=== PATIENT | female | born 2000 | race African-American/Black ===

== ENCOUNTER 2020-06-19 04:57 | Day surgery (SDC) | payer OTHER ==
[2020-06-16 12:31] VITALS: BMI 27.1
[2020-06-19] MEDS ORDERED: ACETAMINOPHEN 325 MG TABLET (FP) PO PRN (11:43)
[2020-06-19] MEDS ORDERED: oxyCODONE HCL 5 MG TABLET PO PRN ×3 (11:43→13:56)
[2020-06-19] MEDS ORDERED: IBUPROFEN 400 MG TABLET (FP) PO PRN (11:43)
--- NOTE | 2020-06-19 11:49 | HP ---
Admitting History and Physical - Admission History of Present Illness: 20 yo with persistent L bartholin gland cyst, desiring surgical intervention History Source: Patient Limitations to Obtaining History: No Limitations - Past Medical History LOCATION MAN: Yes: Migraine (without aura) Cardiovascular: No: HTN Pulmonary: No: Asthma Gastrointestinal: No: GERD ...LMP: 06/07/20 ...: No - Past Surgical History Past Surgical History: Yes: None - Smoking History Smoking history: Never smoked Have you smoked in the past 12 months: No - Alcohol/Substance Use Hx Alcohol Use: No Home Medications - Allergies Allergies/Adverse Reactions: Allergies Allergy/AdvReac Type Severity Reaction Status Date / Time No Known Allergies Allergy Verified 06/19/20 08:37 - Home Medications Home Medications: Ambulatory Orders Ibuprofen 400 mg PO PRN 06/16/20 Metronidazole 500 mg PO BID 06/16/20 Family Medical History Family History: Denies Review of Systems - Review of Systems Constitutional: reports: No Symptoms Cardiovascular: reports: No Symptoms Respiratory: reports: No Symptoms Gastrointestinal: reports: No Symptoms Neurological: reports: No Symptoms Endocrine: reports: No Symptoms Physical Examination Vital Signs: Vital Signs Temperature 97.5 F L 06/19/20 08:34 Pulse Rate 91 H 06/19/20 08:34 Respiratory Rate 20 06/19/20 08:34 Blood Pressure 128/74 06/19/20 08:34 O2 Sat by Pulse Oximetry (%) 100 06/19/20 08:34 Constitutional: Yes: Well Nourished, No Distress, Calm Cardiovascular: Yes: Regular Rate and Rhythm Respiratory: Yes: Regular Gastrointestinal: Yes: Normal Bowel Sounds, Soft Extremities: Yes: Deformity Edema: No Neurological: Yes: WNL Psychiatric: Yes: Alert, Oriented Assessment/Plan 20 yo with L bartholin gland cyst, desiring surgical intervneiton 1. Risks, benefits, alternatives and complications including infection, bleeding discussed discussed postop antibiotic use, strict pelvic rest 2. SCDs for DVT prophylaxis 3. Preop labs reviewed 4. Will proceed to OR
[2020-06-19] MEDS ORDERED: MIDAZOLAM HCL 2 MG/2 ML SINGLE DOSE VIAL ONE (12:36)
[2020-06-19] MEDS ORDERED: PROPOFOL 20 ML ONE ×2 (12:36)
[2020-06-19] MEDS ORDERED: LIDOCAINE 1%/EPI 1:100000 (20 ML MULTI DOSE VIAL) ONE (12:37)
[2020-06-19] MEDS ORDERED: LIDOCAINE 1%/EPI 1:100000 (50 ML MULTI DOSE VIAL) INF ONE ×3 (12:45→13:01)
--- NOTE | 2020-06-19 13:33 | OP ---
Operative Note - Note: Operative Date: 06/19/20 Pre-Operative Diagnosis: L bartholin gland cyst Operation: Marsupialization of Left Bartholin Gland Cyst Findings: 4 cm L bartholin gland cyst Post-Operative Diagnosis: Same as Pre-op Surgeon: Odilia Abarca Anesthesiologist/JUNIOR ARCHITECT: Daryn Sebastian Anesthesia: General Specimens Removed: Portion of Bartholin Gland cyst wall Estimated Blood Loss (mls): 10 Fluid Volume Replaced (mls): 900 Operative Report Dictated: Yes
[2020-06-19] MEDS ORDERED: ONDANSETRON 4 MG/2 ML VIAL IVPUSH PRN (13:49)
[2020-06-19] MEDS ORDERED: PROMETHAZINE HCL 25 MG/1 ML VIAL IVPUSH PRN (13:49)
[2020-06-19 16:58] VITALS: BP 136/82; PULSE 72; TEMP 97.7
--- NOTE | 2020-06-19 21:32 | OP ---
DATE OF OPERATION: 06/19/2020 ATTENDING PHYSICIAN: Gabbi Abarca MD PREOPERATIVE DIAGNOSIS: Persistent left Bartholin gland cyst. POSTOPERATIVE DIAGNOSIS: Persistent left Bartholin gland cyst. SURGERY: Marsupialization of left Bartholin gland cyst. SURGEON: Gabbi Abarca MD ANESTHESIOLOGIST: Daryn Sebastian MD ANESTHESIA: General anesthesia. FLUIDS GIVEN: 900 ESTIMATED BLOOD LOSS: 10 mL. INDICATIONS: Patient is a 20-year-old with a history of persistent left Bartholin gland cyst. She was counseled regarding observation, I&D, and surgical management with marsupialization. She opted for marsupialization. Risks, benefits, alternatives, and complications of the procedure were discussed, including infection, bleeding, scarring. She expressed understanding, was brought to the operating room. DESCRIPTION OF PROCEDURE: When anesthesia was found to be adequate, patient was prepped and draped in normal sterile fashion, placed in dorsal lithotomy position using Madan stirrups. The left Bartholin gland cyst was identified and noted to be approximately 4 cm. Lidocaine with epinephrine was injected superficially adjacent to the hymenal ring on the left side. An approximately 1-cm skin incision was made and carried down to the level of the cyst wall using Metzenbaum scissors. The cyst wall was then ruptured. Clear mucinous material was noted. Culture was obtained. A sample of the cyst wall was biopsied and sent to pathology. The edges of the cyst wall were then sutured to the vaginal mucosa in a running fashion using 0 Vicryl in a running fashion. Good hemostasis was noted. A 2-cm length of Surgicel was placed on the marsupialization opening. The patient was awakened from anesthesia and brought to the recovery room in stable condition. GABBI ABARCA M.D. [id number] MTDD
--- NOTE | 2020-06-22 10:20 | PATH ---
Surgical Pathology Report Patient Name: NATALIYA HA [facility]. Rec. #: [id number] /Age/Gender: 2000 (Age: 20) / F Account: [id number] Location: [facility] SURGICAL Taken: 06/19/2020 Received: 06/20/2020 Reported: 06/22/2020 Physicians: Odilia Abarca Specimen(s) Received BARTHOLIN CYST WALL Clinical History Cyst of Bartholin gland, left Final Diagnosis BARTHOLIN CYST WALL, EXCISION: CONSISTENT WITH BARTHOLIN CYST WALL. Electronically Signed Pooja Case M.D. Gross Description Received in formalin, labeled "Bartholin cyst wall" is a rivero, irregular portion of soft tissue measuring 0.6 x 0.3 x 0.2 cm. in greatest dimension. The specimen is submitted in toto in one cassette.
== END 2020-06-19 15:50 | disposition home or self-care (01) ==
LOC: JASU-SURG 04:57
PROVIDERS: ATTEND Obstetrics & Gynecology
PROC: 0U9L0ZZ Drainage of Vestibular Gland, Open Approach (ICD-10-PCS; principal; 2020-06-19 10:00)
DX: N75.0 Cyst of Bartholin's gland (principal)
CPT/HCPCS: 36415; 84703; 86850; 86900; 86901; 87070; 87075; 87205; 88304-TC; 94760

== ENCOUNTER 2020-11-06 13:31 | Emergency (ER) | payer OTHER | END 2020-11-06 13:37 | disposition home or self-care (01) | LOC: JVIRT 13:31 | DX: Z03.818 Encounter for observation for suspected exposure to other biological agents ruled out (principal) | CPT/HCPCS: C9803; G2012-GT; U0003 ==

== ENCOUNTER 2021-10-09 09:07 | Inpatient (IN) | payer OTHER ==
[2021-10-09 10:46] VITALS: BMI 27.4
[2021-10-09] MEDS ORDERED: PROMETHAZINE HCL 25 MG/1 ML VIAL IVPUSH ONE (11:01)
[2021-10-09] MEDS ORDERED: BUTORPHANOL TARTRATE 1 MG/ML VIAL IVPB ONE (11:01)
[2021-10-09] MEDS ORDERED: AMPICILLIN - 2 GM in SODIUM CHLORIDE 100 ML IVPB ONE (11:06)
[2021-10-09] MEDS: ELECTROLYTE-148 SOLN 1,000 ML IV SCH ×2 (11:29→18:14)
[2021-10-09] MEDS ORDERED: DINOPROSTONE 10 MG VAGINAL SUPPOSITORY VG ONE (11:30)
[2021-10-09] MEDS ORDERED: AMPICILLIN - 1 GM in SODIUM CHLORIDE 100 ML IVPB ONE (15:00)
[2021-10-10] MEDS: OXYTOCIN 30 UNITS in 0.9% NS 30 UNIT/500 ML INFUS.BAG IVPB SCH (01:00)
[2021-10-10] MEDS ORDERED: OXYTOCIN 30 UNITS in 0.9% NS 30 UNIT/500 ML INFUS.BAG IVPB ONE (01:17)
[2021-10-10] MEDS: ELECTROLYTE-148 SOLN 1,000 ML IV SCH ×2 (02:00→12:14)
[2021-10-10] MEDS ORDERED: BUTORPHANOL TARTRATE 2 MG/ML VIAL ONE ×3 (02:33→16:06)
[2021-10-10] MEDS ORDERED: PROMETHAZINE HCL 25 MG/1 ML VIAL ONE ×3 (02:33→16:06)
[2021-10-10] MEDS ORDERED: BUTORPHANOL TARTRATE 1 MG/ML VIAL IVPUSH ONE (09:36)
[2021-10-10] MEDS ORDERED: PROMETHAZINE HCL 25 MG/1 ML VIAL IVPUSH ONE ×2 (09:36→16:17)
[2021-10-10] MEDS ORDERED: BUTORPHANOL TARTRATE 2 MG/ML VIAL IVPUSH ONE (16:17)
[2021-10-10] MEDS ORDERED: AMPICILLIN - 2 GM in SODIUM CHLORIDE 100 ML IVPB ONE (21:00)
[2021-10-10] MEDS ORDERED: FENTANYL/BUPIVACAINE/NS/PF - PCEA - 50 ML DISP.SYRIN EP ONE (22:39)
[2021-10-10 23:17] LABS: BASO % 0.2 % (0-2.0); HEMATOCRIT 31.9 % (32.4-45.2); HEMOGLOBIN 10.9 GM/dL (10.7-15.3); LYMPH % 4.9 % (8-40); MCH 30.5 pg (25.7-33.7); MCHC 34.1 g/dl (32.0-36.0); MEAN CELL VOLUME 89.4 fl (80-96); MEAN PLT VOLUME 7.6 fl (7.5-11.1); MONO % 6.2 % (3.8-10.2); NEUT % 88.7 % (42.8-82.8); PLATELET COUNT 289 10^3/uL (134-434); RBC 3.57 M/mm3 (3.60-5.2); RDW 14.5 % (11.6-15.6); WHITE BLOOD COUNT 15.2 K/mm3 (4.0-10.0)
[2021-10-10 23:24] LABS: INR 0.99 (0.83-1.09); PROTHROMBIN TIME (PATIENT) 11.1 SEC (9.7-13.0)
[2021-10-10 23:27] LABS: ACTIVATED PTT 27.7 SECONDS (25.2-36.5)
[2021-10-10 23:39] LABS: BLOOD UREA NITROGEN 8.8 mg/dL (7-18); CALCIUM 8.1 mg/dL (8.5-10.1)
[2021-10-10 23:43] LABS: CREATININE 0.9 mg/dL (0.55-1.3)
[2021-10-11] MEDS: OXYTOCIN 30 UNITS in 0.9% NS 30 UNIT/500 ML INFUS.BAG IVPB SCH (01:49)
[2021-10-11] MEDS ORDERED: AMPICILLIN SODIUM 2 GM VIAL ONE ×2 (05:43→05:44)
[2021-10-11] MEDS ORDERED: AMPICILLIN - 2 GM in SODIUM CHLORIDE 100 ML IVPB ONE ×2 (05:52→06:20)
[2021-10-11] MEDS ORDERED: PCA PUMP NR ONE ×2 (06:14→10:17)
[2021-10-11] MEDS ORDERED: BUPIVACAINE HCL/PF 0.25% (2.5MG/ML) 10 ML VIAL ONE (06:18)
[2021-10-11] MEDS: FENTANYL/BUPIVACAINE/NS/PF - PCEA - 50 ML DISP.SYRIN EP SCH ×2 (06:35→10:21)
[2021-10-11] MEDS ORDERED: NALOXONE HCL 0.4 MG/ML VIAL IVPUSH PRN (06:52)
[2021-10-11] MEDS ORDERED: AMPICILLIN SODIUM 1 GM VIAL ONE (09:12)
[2021-10-11] MEDS: AMPICILLIN - 1 GM in SODIUM CHLORIDE 100 ML IVPB SCH ×2 (09:45→15:28)
[2021-10-11] MEDS ORDERED: FENTANYL/BUPIVACAINE/NS/PF - PCEA - 50 ML DISP.SYRIN EP ONE (10:17)
[2021-10-11] MEDS: ELECTROLYTE-148 SOLN 1,000 ML IV SCH (11:29)
[2021-10-11] MEDS ORDERED: CITRIC ACID/SODIUM CITRATE 30 ML UNIT-DOSE CUP PO ONE (12:15)
[2021-10-11] MEDS ORDERED: GENTAMICIN 80 MG PREMIXED IVPB 80 MG/100 ML BAG IVPB ONE (12:15)
[2021-10-11] MEDS ORDERED: ACETAMINOPHEN 1000 MG/100 ML VIAL IVPB ONE (12:15)
[2021-10-11] MEDS ORDERED: GENTAMICIN SO4 80 MG/2 ML VIAL ONE (12:27)
[2021-10-11] MEDS ORDERED: ACETAMINOPHEN INJECTION 100 ML IVPB ONE (12:27)
[2021-10-11] MEDS ORDERED: LIDOCAINE HCL 1% PRESERVATIVE FREE - 30ML VIAL ONE (13:12)
[2021-10-11] MEDS ORDERED: ceFAZolin SODIUM 1 GM VIAL ONE ×2 (13:16→18:10)
[2021-10-11] MEDS ORDERED: PROPOFOL 20 ML ONE ×2 (13:16)
[2021-10-11] MEDS ORDERED: OXYTOCIN 10 UNIT/ML 10ML MDV ONE (13:16)
[2021-10-11] MEDS ORDERED: ONDANSETRON 4 MG/2 ML VIAL ONE (13:16)
[2021-10-11] MEDS ORDERED: KETOROLAC TROMETHAMINE 30 MG/1 ML VIAL ONE (13:16)
[2021-10-11] MEDS ORDERED: morphine SULFATE (PF) 1 MG/2 ML SYRINGE ONE ×2 (13:20)
[2021-10-11] MEDS ORDERED: METHYLERGONOVINE MALEATE 0.2 MG/1 ML AMP IM PRN (14:35)
[2021-10-11] MEDS ORDERED: BENZOCAINE 28 GM HEMORRHOIDAL OINTMENT TP PRN (14:35)
[2021-10-11] MEDS ORDERED: WITCH HAZEL 50% (TUCKS) 40 PAD/JAR PAD TP PRN (14:35)
[2021-10-11] MEDS ORDERED: diphenhydrAMINE HCL 25 MG CAPSULE (FP) PO PRN (14:35)
[2021-10-11] MEDS ORDERED: oxyCODONE HCL 5 MG TABLET PO PRN ×2 (14:35)
[2021-10-11] MEDS ORDERED: BENZOCAINE 20% 57 GM BOTTLE TP PRN (14:35)
[2021-10-11] MEDS ORDERED: IBUPROFEN 800 MG/8 ML IJ IVPB PRN (14:35)
[2021-10-11] MEDS ORDERED: ACETAMINOPHEN 325 MG TABLET (FP) PO PRN (14:37)
[2021-10-11] MEDS ORDERED: OXYTOCIN 20 UNITS in 0.9% NS 20 UNIT/1,000 ML INFUS.BAG IV SCH (14:45)
[2021-10-11 15:25] LABS: CORD BASE EXCESS -3.1 mmol/L (0-2); CORD HCO3 24.7 mmHg (20-29); CORD PCO2 55.5 mmHg (30-78); CORD pH 7.266 (7.14-7.44)
[2021-10-11 15:26] LABS: CORD BASE EXCESS -4.4 mmol/L (0-2); CORD HCO3 21.7 mmHg (20-29); CORD PCO2 43.4 mmHg (30-78); CORD pH 7.317 (7.14-7.44)
[2021-10-11] MEDS ORDERED: OXYTOCIN 20 UNITS in 0.9% NS 20 UNIT/1,000 ML INFUS.BAG IV ONE (15:36)
[2021-10-11] MEDS ORDERED: DEXTROSE 5%-WATER - 50 ML IVPB ONE (18:10)
[2021-10-11] MEDS: CEFAZOLIN 1 GM in DEXTROSE 5%-WATER - 50 ML IVPB SCH (18:43)
[2021-10-12] MEDS ORDERED: DEXTROSE 5%-WATER - 50 ML IVPB ONE (01:08)
[2021-10-12] MEDS ORDERED: ceFAZolin SODIUM 1 GM VIAL ONE (01:08)
[2021-10-12] MEDS: IBUPROFEN 600 MG TABLET (FP) PO PRN ×2 (01:12→14:33)
[2021-10-12] MEDS: SIMETHICONE 80 MG TAB.CHEW (FP) PO PRN ×2 (01:12→14:34)
[2021-10-12] MEDS: CEFAZOLIN 1 GM in DEXTROSE 5%-WATER - 50 ML IVPB SCH (01:13)
[2021-10-12 07:41] LABS: BASO % 0.2 % (0-2.0); EOS % 0.4 % (0-4.5); HEMOGLOBIN 9.7 GM/dL (10.7-15.3); LYMPH % 9.5 % (8-40); MCH 31.6 pg (25.7-33.7); MCHC 34.7 g/dl (32.0-36.0); MEAN CELL VOLUME 91.1 fl (80-96); MEAN PLT VOLUME 7.5 fl (7.5-11.1); MONO % 7.7 % (3.8-10.2); NEUT % 82.2 % (42.8-82.8); PLATELET COUNT 237 10^3/uL (134-434); RBC 3.07 M/mm3 (3.60-5.2); RDW 14.6 % (11.6-15.6); WHITE BLOOD COUNT 10.9 K/mm3 (4.0-10.0)
[2021-10-12] MEDS: ENOXAPARIN NA (PORCINE) 40 MG/0.4 ML DISP.SYRIN SQ SCH (11:16)
[2021-10-12] MEDS ORDERED: BISACODYL 10 MG SUPP.RECT PR PRN (14:35)
[2021-10-13] MEDS: IBUPROFEN 600 MG TABLET (FP) PO PRN ×2 (05:14→19:17)
[2021-10-13] MEDS: SIMETHICONE 80 MG TAB.CHEW (FP) PO PRN ×3 (05:16→19:17)
[2021-10-13] MEDS: ENOXAPARIN NA (PORCINE) 40 MG/0.4 ML DISP.SYRIN SQ SCH (09:39)
[2021-10-13] MEDS ORDERED: SENNOSIDES/DOCUSATE COMBO (SENNA PLUS) TABLET (UD) PO PRN (22:00)
[2021-10-13] MEDS: DEXTROSE 5%-LACTATED RINGERS 1,000 ML IV SCH (23:50)
[2021-10-13] MEDS: OXYTOCIN 30 UNITS in 0.9% NS 30 UNIT/500 ML INFUS.BAG IVPB SCH (23:51)
[2021-10-13] MEDS: ELECTROLYTE-148 SOLN 1,000 ML IV SCH (23:51)
[2021-10-14 09:06] LABS: BASO % 0.2 % (0-2.0); EOS % 0.7 % (0-4.5); HEMATOCRIT 31.8 % (32.4-45.2); HEMOGLOBIN 10.7 GM/dL (10.7-15.3); LYMPH % 15.2 % (8-40); MCH 30.6 pg (25.7-33.7); MCHC 33.6 g/dl (32.0-36.0); MEAN CELL VOLUME 91.1 fl (80-96); MEAN PLT VOLUME 7.8 fl (7.5-11.1); MONO % 7.4 % (3.8-10.2); NEUT % 76.5 % (42.8-82.8); PLATELET COUNT 337 10^3/uL (134-434); RBC 3.49 M/mm3 (3.60-5.2); RDW 14.3 % (11.6-15.6); WHITE BLOOD COUNT 8.7 K/mm3 (4.0-10.0)
[2021-10-14] MEDS: ENOXAPARIN NA (PORCINE) 40 MG/0.4 ML DISP.SYRIN SQ SCH (10:03)
[2021-10-14] MEDS: IBUPROFEN 600 MG TABLET (FP) PO PRN (15:17)
[2021-10-15] MEDS: IBUPROFEN 600 MG TABLET (FP) PO PRN (07:17)
[2021-10-15] MEDS: SIMETHICONE 80 MG TAB.CHEW (FP) PO PRN (07:17)
[2021-10-15] MEDS: ENOXAPARIN NA (PORCINE) 40 MG/0.4 ML DISP.SYRIN SQ SCH (09:45)
[2021-10-15 13:57] VITALS: BP 129/68; PULSE 93; TEMP 98.4
== END 2021-10-15 12:55 | disposition home or self-care (01) | DRG 540 ==
LOC: JLDR 09:07 → J3W 10-11 16:52
PROVIDERS: ADMIT Obstetrics & Gynecology; ATTEND Obstetrics & Gynecology
PROC: 3E0P7VZ Introduction of Hormone into Female Reproductive, Via Natural or Artificial Opening (ICD-10-PCS; 2021-10-10)
PROC: 0U7C7ZZ Dilation of Cervix, Via Natural or Artificial Opening (ICD-10-PCS; 2021-10-10)
PROC: 10D00Z1 Extraction of Products of Conception, Low, Open Approach (ICD-10-PCS; principal; 2021-10-11)
DX: O36.5930 Maternal care for other known or suspected poor fetal growth, third trimester, not applicable or unspecified (principal); O41.1230 Chorioamnionitis, third trimester, not applicable or unspecified; O62.0 Primary inadequate contractions; O76 Abnormality in fetal heart rate and rhythm complicating labor and delivery; O69.89X0 Labor and delivery complicated by other cord complications, not applicable or unspecified; O99.824 Streptococcus B carrier state complicating childbirth; B95.1 Streptococcus, group B, as the cause of diseases classified elsewhere; Z3A.36 36 weeks gestation of pregnancy; Z37.0 Single live birth
CPT/HCPCS: 36415; 36600; 80048; 82803; 85025; 85610; 85730; 86780; 86850; 86900; 86901; 88307-TC; C9803; J0131; U0003; U0005

== ENCOUNTER 2021-10-18 13:05 | Emergency (ER) | payer OTHER ==
[2021-10-18 13:18] VITALS: BP 141/72; PULSE 78; TEMP 98; BMI 31.3
== END 2021-10-18 13:47 ==
LOC: JER 13:05
DX: Z11.52 Encounter for screening for COVID-19 (principal)
CPT/HCPCS: 99283-25; C9803; U0003; U0005

== ENCOUNTER 2021-10-24 06:58 | Emergency (ER) | payer OTHER ==
[2021-10-24 07:11] VITALS: BP 132/84; PULSE 93; TEMP 97.9; BMI 31.3
[2021-10-24] MEDS ORDERED: GLYCERIN 1 RECTAL SUPPOSITORY, ADULT PR ONE (07:50)
[2021-10-24] MEDS ORDERED: GLYCERIN 1 RECTAL SUPPOSITORY, PEDIATRIC PR ONE (07:59)
[2021-10-24] MEDS ORDERED: GLYCERIN 1 RECTAL SUPPOSITORY, PEDIATRIC RC ONE (08:01)
== END 2021-10-24 09:50 | disposition home or self-care (01) ==
LOC: JER 06:58
DX: K59.00 Constipation, unspecified (principal)
CPT/HCPCS: 74019-TC-FY; 99283-25

== ENCOUNTER 2022-12-20 12:10 | Emergency (ER) | payer OTHER ==
[2022-12-20 12:23] VITALS: TEMP 98; BMI 29.5
[2022-12-20] MEDS ORDERED: FAMOTIDINE 20 MG/50 ML IVPB 20 MG/50 ML MG IVPB ONE ×2 (13:17→13:19)
[2022-12-20] MEDS ORDERED: ONDANSETRON 4 MG/2 ML VIAL IVPUSH ONE (13:17)
[2022-12-20] MEDS ORDERED: MAG HYDROX/AL HYDROX/SIMETH -MYLANTA- ORAL SUSPENSION PO ONE (13:18)
[2022-12-20] MEDS ORDERED: SODIUM CHLORIDE 0.9% 500 ML INFUS.BAG IV ONE (13:18)
[2022-12-20] MEDS ORDERED: MAG HYDROX/AL HYDROX/SIMETH 30 ML UNIT-DOSE CUP ONE (13:19)
[2022-12-20] MEDS ORDERED: ONDANSETRON 4 MG/2 ML VIAL ONE (13:19)
[2022-12-20 14:08] LABS: BASO % 0.3 % (0-2.0); EOS % 0.9 % (0-4.5); HEMATOCRIT 39.1 % (32.4-45.2); HEMOGLOBIN 12.6 GM/dL (10.7-15.3); LYMPH % 5.2 % (8-40); MCH 27.8 pg (25.7-33.7); MCHC 32.3 g/dl (32.0-36.0); MEAN PLT VOLUME 7.7 fl (7.5-11.1); MONO % 5.3 % (3.8-10.2); NEUT % 88.3 % (42.8-82.8); PLATELET COUNT 362 10^3/uL (134-434); RBC 4.54 M/mm3 (3.60-5.2); RDW 15.1 % (11.6-15.6); WHITE BLOOD COUNT 12.1 K/mm3 (4.0-10.0)
[2022-12-20 14:11] LABS: URINE APPEARANCE TURBID; URINE BILIRUBIN NEGATIVE (NEGATIVE); URINE COLOR YELLOW; URINE GLUCOSE (UA) NEGATIVE (NEGATIVE); URINE KETONE NEGATIVE (NEGATIVE); URINE LEUK ESTERASE NEGATIVE (NEGATIVE); URINE NITRITE NEGATIVE (NEGATIVE); URINE PROTEIN TRACE (NEGATIVE); URINE UROBILINOGEN 0.2 mg/dL (0.2-1.0)
[2022-12-20 14:33] LABS: CALCIUM 9.7 mg/dL (8.5-10.1)
[2022-12-20 14:34] LABS: ALBUMIN 4.4 g/dl (3.4-5.0); BLOOD UREA NITROGEN 9.7 mg/dL (7-18)
[2022-12-20 14:38] LABS: CREATININE 0.8 mg/dL (0.55-1.3)
[2022-12-20 14:39] LABS: BILIRUBIN,TOTAL 0.4 mg/dL (0.2-1); TOT PROT 8.1 g/dl (6.4-8.2)
[2022-12-20] MEDS ORDERED: KETOROLAC TROMETHAMINE 30 MG/1 ML VIAL IVPUSH ONE (15:10)
[2022-12-20] MEDS ORDERED: KETOROLAC TROMETHAMINE 15 MG/ML VIAL ONE (15:33)
[2022-12-20 16:31] VITALS: BP 122/72; PULSE 82; RESP 18
== END 2022-12-20 16:31 | disposition home or self-care (01) ==
LOC: JER 12:10
PROC: 3E033GC Introduction of Other Therapeutic Substance into Peripheral Vein, Percutaneous Approach (ICD-10-PCS; principal; 2022-12-20)
PROC: 3E0333Z Introduction of Anti-inflammatory into Peripheral Vein, Percutaneous Approach (ICD-10-PCS; 2022-12-20)
PROC: 3E033GC Introduction of Other Therapeutic Substance into Peripheral Vein, Percutaneous Approach (ICD-10-PCS; 2022-12-20)
DX: R10.84 Generalized abdominal pain (principal)
CPT/HCPCS: 0241U-QW; 36415; 80053; 81003; 83690; 84703; 85025; 87086; 99284-25

== ENCOUNTER 2024-02-07 12:15 | Day surgery (SDC) | payer OTHER ==
[2024-02-07] MEDS: FERRIC CARBOXYMALTOSE 750 MG in SODIUM CHLORIDE 250 ML IVPB SCH (13:04)
[2024-02-07 14:25] VITALS: BP 103/49; PULSE 75; RESP 14; TEMP 99.3
== END 2024-02-07 14:56 | disposition home or self-care (01) ==
LOC: FINFUSION 12:15 → FM/S 12:16 → FINFUSION 14:56
PROVIDERS: ATTEND Family Medicine
PROC: 3E033GC Introduction of Other Therapeutic Substance into Peripheral Vein, Percutaneous Approach (ICD-10-PCS; principal; 2024-02-07)
DX: D50.9 Iron deficiency anemia, unspecified (principal)
CPT/HCPCS: 81025; 96365; J1439

== ENCOUNTER 2024-02-16 15:13 | Emergency (ER) | payer OTHER ==
[2024-02-16 15:25] VITALS: BP 104/61; PULSE 84; RESP 18; TEMP 97.9; BMI 29.9
[2024-02-16 17:13] LABS: BASO % 0.2 % (0-2.0); EOS % 1.6 % (0-4.5); HEMATOCRIT 36.7 % (32.4-45.2); HEMOGLOBIN 12.3 GM/dL (10.7-15.3); LYMPH % 21.3 % (8-40); MCH 29.5 pg (25.7-33.7); MCHC 33.4 g/dl (32.0-36.0); MEAN CELL VOLUME 88.2 fl (80-96); MEAN PLT VOLUME 7.7 fl (7.5-11.1); MONO % 8.6 % (3.8-10.2); NEUT % 68.3 % (42.8-82.8); PLATELET COUNT 389 10^3/uL (134-434); RBC 4.16 M/mm3 (3.60-5.2); RDW 14.5 % (11.6-15.6); WHITE BLOOD COUNT 9.8 K/mm3 (4.0-10.0)
[2024-02-16 17:21] LABS: INR 1.14 (0.83-1.09); PROTHROMBIN TIME (PATIENT) 13.2 SEC (9.7-13.0)
[2024-02-16 17:26] LABS: EPI CELLS 11 /uL (0-25.1); HYALINE CASTS 2 /uL (0-3.1); PH,URINE 5.5 (5.0-8.0); URINE APPEARANCE CLEAR; URINE BACTERIA 15 /uL (0-1359); URINE BILIRUBIN NEGATIVE (NEGATIVE); URINE COLOR YELLOW; URINE GLUCOSE (UA) NEGATIVE (NEGATIVE); URINE KETONE NEGATIVE (NEGATIVE); URINE LEUK ESTERASE NEGATIVE (NEGATIVE); URINE NITRITE NEGATIVE (NEGATIVE); URINE PROTEIN NEGATIVE (NEGATIVE); URINE RBC 373 /uL (0-23.9); URINE UROBILINOGEN 0.2 mg/dL (0.2-1.0); URINE WBC 6 /uL (0-25.8)
[2024-02-16 17:27] LABS: HCG,QUALITATIVE URINE Negative
[2024-02-16 17:34] LABS: POTASSIUM 4.1 mmol/L (3.5-5.1)
[2024-02-16 17:37] LABS: CALCIUM 8.9 mg/dL (8.5-10.1)
[2024-02-16 17:38] LABS: BLOOD UREA NITROGEN 9.8 mg/dL (7-18)
[2024-02-16 17:41] LABS: CREATININE 0.8 mg/dL (0.55-1.3)
[2024-02-16 17:43] LABS: BILIRUBIN,TOTAL 0.2 mg/dL (0.2-1); TOT PROT 7.6 g/dl (6.4-8.2)
== END 2024-02-16 19:26 | disposition home or self-care (01) ==
LOC: JER 15:13
DX: N92.0 Excessive and frequent menstruation with regular cycle (principal); R10.2 Pelvic and perineal pain
CPT/HCPCS: 36415; 76830-TC; 80053; 81003; 84703; 85025; 85610; 86850; 86900; 86901; 87086; 87491; 87591; 87661; 99284-25